=== PATIENT | female | born 1955 | race Caucasian/White ===

== ENCOUNTER 2022-11-29 06:21 | Day surgery (SDC) | payer MEDICARE, OTHER ==
[2022-11-29] MEDS ORDERED: Lactated Ringers 1,000 ML IV ONE (07:06)
[2022-11-29] MEDS ORDERED: Lactated Ringers 1,000 ML IV SCH (07:30)
[2022-11-29] MEDS ORDERED: DIPRIVAN 200 MG/20 ML IV ONE ×2 (07:51→08:24)
[2022-11-29] MEDS ORDERED: Xylocaine-Mpf 2% 5 Ml Vial ONE (07:51)
[2022-11-29] MEDS ORDERED: Versed 2 MG/2 ML Injection ONE (07:54)
[2022-11-29] MEDS ORDERED: ROBINUL ONE (08:12)
[2022-11-29 09:33] VITALS: BP 147/78; PULSE 61; O2SAT 97
--- NOTE | 2022-11-29 09:38 | OP ---
SURGERY DATE/TIME: 11/29/2022 0809 PREOPERATIVE DIAGNOSIS: Screening colonoscopy. POSTOPERATIVE DIAGNOSIS: Colon polyps x5. PROCEDURE: Colonoscopy. SURGEON: Riky Desouza M.D. ANESTHESIA: MAC by Checo Herrera CRNA. ESTIMATED BLOOD LOSS: Minimal. SPECIMENS: There were five hot forceps polypectomies from cecum, ascending colon, transverse colon, descending colon and sigmoid colon. DESCRIPTION OF PROCEDURE: After informed written consent was obtained, the patient was taken to the endoscopy suite. She was placed in left lateral decubitus position. Anesthesia was titrated to desired level of consciousness. Digital rectal exam showed normal sphincter tone and no internal lesions. The scope was inserted into the rectum and sequentially the entire colonic mucosa was traversed. The level of cecum was reached and verified with direct visualization of the ileocecal valve. There was a small sessile polyp in the cecal region which was grasped with forceps, cauterized and removed in its entirety. There was likewise another sessile polyp in the ascending colon which was removed in the same fashion with hot forceps. The transverse colon polyp was removed with hot forceps as well as descending and sigmoid colon polyp. All of them were grasped with forceps cauterized and removed in their entirety with good hemostasis. Prior to withdrawal retroflexion showed no internal lesions. The scope was removed. The patient was transferred to the recovery room in good condition. She was advised to follow up in a week for pathology results.
== END 2022-11-29 09:35 | disposition home or self-care (01) ==
LOC: SDC 06:21
PROVIDERS: ATTEND Family Medicine
DX: Z12.11 Encounter for screening for malignant neoplasm of colon (principal); D12.2 Benign neoplasm of ascending colon; D12.0 Benign neoplasm of cecum; D12.4 Benign neoplasm of descending colon; D12.5 Benign neoplasm of sigmoid colon; D12.3 Benign neoplasm of transverse colon
CPT/HCPCS: J2250; J2704